=== PATIENT | female | born 1950 | race African-American/Black ===

== ENCOUNTER 2023-04-21 03:01 | Emergency (ER) | payer MEDICARE, MEDICAID ==
[~2023-04-21] VITALS: Ht 165.1 cm; Wt 66.0 kg
[~2023-04-21 03:01] MED LIST: AMOX1TAB16 MT; ASPI-867 PO; FURO40TA5 PO; HYDR25TA PO; LISI20TA31 PO; LORA10TA7 PO; METO25TA6 PO; OLAN5TAB74 PO; RISP0.2514 PO; SULF1TAB48 MT
[2023-04-21 03:02] VITALS: O2SAT 100
[2023-04-21] MEDS ORDERED: IBUPROFEN 400MG TABLET PO ONE (05:30)
[2023-04-21] MEDS ORDERED: ACETAMINOPHEN 325MG TABLET PO ONE (05:30)
[2023-04-21] MEDS ORDERED: IBUP-2028 MT (06:33)
[2023-04-21 06:43] VITALS: BP 145/76; PULSE 65; RESP 16; TEMP 98.2
== END 2023-04-21 06:45 | disposition home or self-care (01) ==
LOC: EDBD 03:01 → ER 03:01
DX: G89.29 Other chronic pain (principal); M79.672 Pain in left foot; M79.671 Pain in right foot; Z88.0 Allergy status to penicillin; Z88.5 Allergy status to narcotic agent
CPT/HCPCS: 99283

== ENCOUNTER 2024-07-15 11:05 | Emergency (ER) | payer MEDICARE, MEDICAID ==
[~2024-07-15] VITALS: Ht 180.3 cm; Wt 74.8 kg
[~2024-07-15 11:05] MED LIST changes: +IBUP-2028 MT
[2024-07-15 11:10] VITALS: O2SAT 96
[2024-07-15] MEDS: ACETAMINOPHEN 325MG TABLET PO STA (11:12)
[2024-07-15 18:20] LABS: CLARITY URINE CLEAR (CLEAR); COLOR URINE YELLOW (YELLOW); GLUCOSE URINE NEGATIVE (NEGATIVE); KETONES URINE 1+ (NEGATIVE); LEUKOCYTE ESTERASE URINE NEGATIVE (NEGATIVE); NITRITE URINE NEGATIVE (NEGATIVE); OCCULT BLOOD URINE TRACE (NEGATIVE); PH URINE 5.5 (4.5-8.0); PROTEIN URINE NEGATIVE (NEGATIVE); SPECIFIC GRAVITY URINE 1.011 (1.005-1.030)
[2024-07-15 18:35] LABS: BACTERIA URINE NONE SEEN; RBC URINE 0-2 /hpf (0-2); SQUAMOUS EPITHELIAL CELL URINE RARE /lpf (RARE/1+); WBC URINE 0-2 /hpf (0-2)
[2024-07-15 18:40] LABS: *AMPHETAMINES SCREEN URINE NEGATIVE (NEGATIVE)
[2024-07-15 18:41] LABS: *BARBITURATES SCREEN URINE NEGATIVE (NEGATIVE); *BENZODIAZEPINES SCREEN URINE NEGATIVE (NEGATIVE); *COCAINE SCREEN URINE PRESUMPTIVE POSITIVE (NEGATIVE); CANNABINOID URINE SCREEN NEGATIVE (NEGATIVE); ECSTASY MDMA SCREEN URINE NEGATIVE (NEGATIVE); METHADONE URINE SCREEN NEGATIVE (NEGATIVE); OPIATES URINE SCREEN NEGATIVE (NEGATIVE); PHENCYCLIDINE URINE SCREEN NEGATIVE (NEGATIVE)
[2024-07-15] MEDS: HALOPERIDOL LACTATE 5MG/ML VIAL IM ONE (20:15)
[2024-07-15 21:38] LABS: BASOPHILS % 0.6 % (0.0-2.0); EOSINOPHILS % 1.1 % (0.0-5.0); HEMATOCRIT. 36.6 % (36.0-48.0); HEMOGLOBIN. 12.2 g/dL (12.0-16.0); LYMPHOCYTES % 22.3 % (20.0-50.0); MEAN CORPUSCULAR HEMOGLOBIN 30.3 pg (28.0-32.0); MEAN CORPUSCULAR HGB CONC 33.2 g/dL (31.0-37.0); MEAN CORPUSCULAR VOLUME 91.2 fL (81.0-99.0); MEAN PLATELET VOLUME 8.8 fl (7.4-10.4); MONOCYTES % 11.5 % (2.0-8.0); NEUTROPHILS % 64.5 % (40.0-76.0); PLATELET 184 x1000/uL (130-400); RED BLOOD CELL COUNT 4.01 mill/uL (4.2-5.4); RED CELL DISTRIBUTION WIDTH 14.5 % (11.6-14.6); WHITE BLOOD COUNT 6.6 x1000/uL (4.5-11.0)
[2024-07-15 21:40] LABS: CHLORIDE 109 mEq/L (98-107); SODIUM 143 mEq/L (136-145)
[2024-07-15 21:41] LABS: CARBON DIOXIDE 28 mEq/L (21-32)
[2024-07-15 21:42] LABS: CALCIUM 9.3 mg/dL (8.7-10.4)
[2024-07-15 21:46] LABS: CREATININE 0.8 mg/dL (0.6-1.0)
[2024-07-15 21:47] LABS: ETHANOL BLOOD < 10 mg/dL (<10); GLUCOSE 150 mg/dL (70-105); UREA NITROGEN BLOOD 24 mg/dL (9-23)
[2024-07-15 21:49] LABS: ACETAMINOPHEN < 2 ug/mL (10-30)
[2024-07-16] MEDS: ACETAMINOPHEN 325MG TABLET PO ONE (10:09)
[2024-07-17] VITALS: BP 109/55; PULSE 67; RESP 18; TEMP 36.3; O2SAT 95
== END 2024-07-17 00:12 ==
LOC: ER 11:05
DX: F29 Unspecified psychosis not due to a substance or known physiological condition (principal); Z88.0 Allergy status to penicillin; Z88.5 Allergy status to narcotic agent; Z20.822 Contact with and (suspected) exposure to COVID-19; Z79.899 Other long term (current) drug therapy
CPT/HCPCS: 36415; 80048; 80305; 80307; 80320; 80329; 81003; 85025; 87426; 99285; G0480